=== PATIENT | female | born 1950 | race Caucasian/White ===

== ENCOUNTER 2023-09-06 13:01 | Outpatient (CLI) | payer MEDICARE, OTHER, SELFPAY ==
[2023-09-06 16:25] LABS: Ferritin 65 ng/mL (8-252); Free T3 2.2 pg/mL (2.18-3.98); T4 Free Direct 0.85 ng/dL (0.76-1.46); Thyroid Stim Hormone (TSH) 4.08 uIU/mL (0.358-3.74)
[2023-09-08 08:08] LABS: Thyroid Peroxidase AB 13 IU/mL (0-34)
[2023-09-09 12:08] LABS: Vitamin D 1,25-Dihydroxy 24.7 pg/mL (24.8-81.5)
== END 2023-09-06 23:59 | disposition home or self-care (01) ==
PROVIDERS: Referring Provider Dermatology Pediatric Dermatology; Visit Provider Dermatology Pediatric Dermatology
DX: L82.1 Other seborrheic keratosis (principal); L81.4 Other melanin hyperpigmentation; D18.01 Hemangioma of skin and subcutaneous tissue; Z71.89 Other specified counseling; L90.5 Scar conditions and fibrosis of skin; L82.0 Inflamed seborrheic keratosis; R20.8 Other disturbances of skin sensation; L64.8 Other androgenic alopecia; L91.8 Other hypertrophic disorders of the skin; D64.9 Anemia, unspecified; L57.8 Other skin changes due to chronic exposure to nonionizing radiation
CPT/HCPCS: 36415; 82652; 82728; 84439; 84443; 84481; 86376